=== PATIENT | male | born 1945 | race Hispanic/Latino ===

== ENCOUNTER → 2018-01-20 | Outpatient (CLI) | payer OTHER, MEDICARE ==
[~2018-01-20] MED LIST: LISI40TA4 PO
== END | disposition home or self-care (01) ==
LOC: RAH 08:29
PROVIDERS: ATTEND Internal Medicine
DX: K76.0 Fatty (change of) liver, not elsewhere classified (principal)
CPT/HCPCS: 76700

== ENCOUNTER → 2020-02-07 | Outpatient (CLI) | payer OTHER, MEDICARE | END | disposition home or self-care (01) | LOC: RAH 14:58 | PROVIDERS: ATTEND Family Medicine | DX: S83.281A Other tear of lateral meniscus, current injury, right knee, initial encounter (principal); M17.11 Unilateral primary osteoarthritis, right knee; X58.XXXA Exposure to other specified factors, initial encounter; Y93.89 Activity, other specified; Y92.89 Other specified places as the place of occurrence of the external cause; Y99.8 Other external cause status | CPT/HCPCS: 73721 ==

== ENCOUNTER → 2021-03-27 | Outpatient (CLI) | payer OTHER, MEDICARE ==
[~2021-03-27] MED LIST changes: -LISI40TA4 PO; +LISI40TA9 PO
== END | disposition home or self-care (01) ==
LOC: RAH 09:00
PROVIDERS: ATTEND Family Medicine
DX: R14.3 Flatulence (principal); K76.0 Fatty (change of) liver, not elsewhere classified
CPT/HCPCS: 76700; 76856

== ENCOUNTER → 2021-05-14 | Outpatient (CLI) | payer OTHER, MEDICARE ==
[~2021-05-14] MED LIST changes: +IOHEXOL-350 50ML VIAL IV ONE
== END | disposition home or self-care (01) ==
LOC: RAH 08:17
PROVIDERS: ATTEND Internal Medicine Gastroenterology
DX: K76.0 Fatty (change of) liver, not elsewhere classified (principal); J84.10 Pulmonary fibrosis, unspecified; Z90.81 Acquired absence of spleen
CPT/HCPCS: 74178; Q9967